=== PATIENT | female | born 1990 | race Caucasian/White ===

== ENCOUNTER 2017-11-12 00:28 | Emergency (ER) | payer BC, OTHER, SELFPAY ==
[~2017-11-12] VITALS: Ht 165.1 cm; Wt 84.9 kg
[2017-11-12] MEDS ORDERED: LEVO125T PO (00:54)
[2017-11-12] MEDS ORDERED: LEVO137T2 PO (00:54)
[2017-11-12 01:45] LABS: MICROSCOPIC AUTO
[2017-11-12 01:46] LABS: CULTURE INDICATED? NO
[2017-11-12 01:59] LABS: BASOPHILS # (AUTO) 0.04 x10^3/uL (0-0.1); BASOPHILS % (AUTO) 0 % (0-1); EOSINOPHILS # (AUTO) 0.17 x10^3/uL (0-0.4); EOSINOPHILS % (AUTO) 2 % (1-7); LYMPHOCYTES # (AUTO) 2.28 x10^3/uL (1-3.4); LYMPHOCYTES % (AUTO) 21 % (22-44); MD NO; MEAN CORPUSCULAR HEMOGLOBIN 29.9 pg (27.0-34.8); MEAN CORPUSCULAR HGB CONC 33.9 g/dL (32.4-35.8); MEAN CORPUSCULAR VOLUME 88.1 fL (80-100); MEAN PLATELET VOLUME 11.8 fL (7.4-10.4); MONOCYTES # (AUTO) 0.68 x10^3/uL (0.2-0.8); MONOCYTES % (AUTO) 6 % (2-9); NEUTROPHILS # (AUTO) 7.52 x10^3/uL (1.8-6.8); NEUTROPHILS % (AUTO) 70 % (42-75); PLATELET COUNT 221 x10^3/uL (130-400); RED BLOOD COUNT 4.31 x10^6/uL (3.82-5.3); RED CELL DISTRIBUTION WIDTH 14.2 % (9.6-15.2)
[2017-11-12 02:08] LABS: ALANINE AMINOTRANSFERASE 23 U/L (12-78); ALBUMIN 3.4 g/dL (3.4-5.0); ANION GAP 6 mmol/L (5-15); CALCIUM 8.4 mg/dL (8.5-10.1); CHLORIDE 107 mmol/L (98-107); CREATININE 0.67 mg/dL (0.55-1.02)
[2017-11-12 02:25] LABS: ALKALINE PHOSPHATASE 73 U/L (45-117); BILIRUBIN,TOTAL 0.2 mg/dL (0.2-1.0); TOTAL PROTEIN 7.3 g/dL (6.4-8.2)
[2017-11-12 04:14] VITALS: BP 126/88
== END 2017-11-12 04:15 | disposition home or self-care (01) ==
LOC: ED 01:01
DX: O20.0 Threatened abortion (principal); C73 Malignant neoplasm of thyroid gland
CPT/HCPCS: 36415; 76801; 80053; 81001; 84443; 84702; 85025; 86901; 99285